=== PATIENT | male | born 1970 | race Hispanic/Latino ===

== ENCOUNTER 2024-03-16 10:00 | Inpatient (IN) | payer MEDICAID, SELFPAY ==
[2024-03-16] MEDS ORDERED: Ondansetron PF 4 MG/2 ML Vial ONE (10:31)
[2024-03-16] MEDS ORDERED: Morphine 4 MG/ML VIAL ONE ×2 (10:31→13:05)
[2024-03-16 11:10] LABS: INR-International Normal Ratio 1.2; PTT 32.3 sec (22.9-36.1); Prothrombin Time 15.5 sec (12.0-14.7)
[2024-03-16 11:36] LABS: Band 40 % (5-11); Large Platelets 2.7 % (0-5); Monocytes 2 % (0-10); Neutrophil 58 % (42-75); Platelet Adequacy Comment Platelets Decreased; RBC Morphology Within Normal Limits; Reactive Lymphocytes 1 % (0-10)
[2024-03-16 11:44] LABS: Hematocrit 44.6 % (42.0-52.0); Hemoglobin 16.2 g/dL (14.0-18.0); Mean Corpuscular HGB CONC 36.3 g/dL (32.0-36.0); Mean Corpuscular Hemoglobin 34.5 pg (27.0-31.0); Mean Corpuscular Volume 95.1 fL (78.0-98.0); Mean Platelet Volume 12.2 fL (7.4-10.4); Platelet Count 92 10x3/uL (130-400); RBC Distribution Width 12.1 % (11.5-14.5); Red Blood Cell (RBC) Count 4.69 mill/uL (4.70-6.10)
[2024-03-16 11:59] LABS: Troponin I 0.336 ng/mL (< 0.028)
[2024-03-16] MEDS ORDERED: Piperacillin/Tazobactam 3.375 GM VIAL ONE (12:23)
[2024-03-16] MEDS ORDERED: Aspirin Chewable 81 MG TAB ONE (12:23)
[2024-03-16] MEDS ORDERED: Sodium Chloride 0.9% 100 ML ONE (12:23)
[2024-03-16] MEDS ORDERED: Lactated Ringer's 1,000 ML IV SCH (13:15)
[2024-03-16 14:25] LABS: ALT (SGPT) 78 U/L (8-55); AST (SGOT) 128 U/L (5-34); Albumin 1.7 g/dL (3.5-5.0); Alkaline Phosphatase 122 U/L (40-110); Anion Gap 22 mmol/L (10-20); BUN (Urea Nitrogen) 35 mg/dL (8.4-25.7); Bilirubin, Total 4.8 mg/dL (0.2-1.2); Calc. Creatinine Clearance 0 mL/min (70-130); Calcium 4.7 mg/dL (7.8-10.44); Carbon Dioxide 11 mmol/L (22-29); Chloride 96 mmol/L (98-107); Estimated GFR 15; Globulin 3.7 g/dL (2.4-3.5); Glucose 272 mg/dL (70-105); Lipase 1517 U/L (8-78); Magnesium 1.2 mg/dL (1.6-2.6); Potassium 4.7 mmol/L (3.5-5.1); Protein, Total 5.4 g/dL (6.0-8.3); Sodium 124 mmol/L (136-145)
[2024-03-16 14:33] LABS: Critical Call Chem Troponin I TRENDING DOWN; Troponin I 0.228 ng/mL (< 0.028)
[2024-03-16] MEDS ORDERED: Ondansetron ODT 4 MG TAB PO PRN (14:34)
[2024-03-16] MEDS ORDERED: Ondansetron PF 4 MG/2 ML Vial IVP PRN (14:34)
[2024-03-16] MEDS ORDERED: Calcium Carbonate 500 MG ChewTAB PO PRN (14:34)
[2024-03-16] MEDS ORDERED: Lorazepam 2 MG/ML VIAL IM PRN (14:41)
[2024-03-16] MEDS ORDERED: Electrolyte Replacement Protocol 1 EACH FS SCH (14:45)
[2024-03-16] MEDS ORDERED: CALCIUM GLUC 1 GM/NS 50 ML IV Bag ONE (14:48)
[2024-03-16] MEDS ORDERED: Magnesium 2 GM/50 ML BAG (IN WATER) ONE (14:48)
[2024-03-16] MEDS ORDERED: Nitroglycerin 0.4 MG TAB (25 Tab Bottle) SL PRN (14:57)
[2024-03-16] MEDS: Multivitamins, Adult 10 ML, Thiamine HCl 100 MG, Folic Acid 1 MG in Dextrose 5 %-0.45 %... IV SCH (15:37)
[2024-03-16] MEDS: Sodium Bicarb 50 MEQ/50 ML Abboject 8.4% SYRINGE IVP SCH (16:33)
[2024-03-16] MEDS: CALCIUM GLUC 1 GM/NS 50 ML 1 GM in Premix 1 BAG IVPB SCH (16:33)
[2024-03-16] MEDS: Magnesium 2 GM/50 ML(in water) 2 GM in Premix 1 BAG IVPB SCH (16:33)
[2024-03-16] MEDS: Morphine 4 MG/ML VIAL SLOW IVP PRN (16:39)
[2024-03-16] MEDS: Sodium Bicarbonate 150 MEQ in Dextrose 5% in Water 1,000 ML IV SCH (16:43)
[2024-03-16] MEDS: Piperacillin/Tazobactam 3.375 GM in Sodium Chloride 0.9% 100 ML IVPB SCH (17:48)
[2024-03-16] MEDS: Albumin 25% 25 GM (100 mL) BOT IVPB SCH (17:48)
[2024-03-16 19:17] LABS: Lactic Acid 3.9 mmol/L (0.5-2.2)
[2024-03-16 19:36] LABS: Base Excess -15.3 mEq/L (-2.0 to +3.0); Chloride (VBG) 95 mmol/L (98-106); Hematocrit-VBG 40 % (42.0-52.0); Hemoglobin (Hb) 13.7 g/dL (13.1-17.2); Potassium (VBG) 4.54 mmol/L (3.70-5.30); Sodium 127 mmol/L (133-146)
[2024-03-16 19:40] LABS: Actual Bicarbonate (HCO3v) 13.4 mEq/L (22-28); pH (venous) 7.124 (7.32-7.43)
[2024-03-16] MEDS: Sodium Bicarb 50 MEQ/50 ML Abboject 8.4% SYRINGE ONE (20:12)
[2024-03-16] MEDS ORDERED: Glucagon 1 MG/ML KIT IM PRN (20:13)
[2024-03-16] MEDS ORDERED: Dextrose 5% in Water 1,000 ML IV PRN (20:13)
[2024-03-16] MEDS: Sodium Bicarb 50 mEq/50 ML VIAL IVP SCH (20:23)
[2024-03-16] MEDS: Pantoprazole 40 MG VIAL IVP SCH (20:24)
[2024-03-16] MEDS: Famotidine/PF 20 mg/2ml Vial SLOW IVP SCH (20:24)
[2024-03-16 23:37] LABS: Actual Bicarbonate (HCO3v) 15.4 mEq/L (22-28); Base Excess -8.4 mEq/L (-2.0 to +3.0); Chloride (VBG) 95 mmol/L (98-106); Hematocrit-VBG 35 % (42.0-52.0); Hemoglobin (Hb) 11.9 g/dL (13.1-17.2); Sodium 128 mmol/L (133-146); pH (venous) 7.371 (7.32-7.43)
[2024-03-17] MEDS: Lorazepam 1 MG TAB PO PRN (00:16)
[2024-03-17 00:19] LABS: Anion Gap 26 mmol/L (10-20); BUN (Urea Nitrogen) 40 mg/dL (8.4-25.7); Calc. Creatinine Clearance 18 mL/min (70-130); Calcium 4.6 mg/dL (7.8-10.44); Carbon Dioxide 13 mmol/L (22-29); Chloride 94 mmol/L (98-107); Estimated GFR 13; Glucose 368 mg/dL (70-105); Potassium 4.6 mmol/L (3.5-5.1); Sodium 128 mmol/L (136-145)
[2024-03-17] MEDS ORDERED: Calcium Chloride 1 GM/10 ML Abboject SYRINGE ONE (01:26)
[2024-03-17] MEDS ORDERED: Sodium Bicarb 50 MEQ/50 ML Abboject 8.4% SYRINGE ONE (01:26)
[2024-03-17] MEDS ORDERED: EPINEPHrine 1 MG/10 ML Abboject SYRINGE ONE (01:26)
[2024-03-17] MEDS ORDERED: Ventilator Sedation Protocol 1 EACH FS SCH (01:37)
[2024-03-17] MEDS ORDERED: Fentanyl BOLUS 250 ML IVPB PRN (01:45)
[2024-03-17] MEDS ORDERED: DISCONTINUE PREVIOUS NARCOTIC PAIN MEDICATIONS AND BENZODIAZEPINES FS SCH (01:45)
[2024-03-17] MEDS ORDERED: Propofol BOLUS 1,000 MG/100 ML VIAL IV PRN (01:45)
[2024-03-17] MEDS ORDERED: Morphine 2 MG/ML VIAL SLOW IVP PRN (01:45)
[2024-03-17] MEDS: Propofol 1,000 MG/100 ML VIAL IV PRN (01:45)
[2024-03-17 02:27] LABS: INR-International Normal Ratio 1.3; Prothrombin Time 16.6 sec (12.0-14.7)
[2024-03-17 02:28] LABS: PTT 38.3 sec (22.9-36.1)
[2024-03-17 02:38] LABS: Actual Bicarbonate (HCO3a) 17.8 mEq/L (22-28); Base Excess (BEa) -11.3 mEq/L (-2.0 to +3.0); CO2 Tension 54.1 mmHg (35.0-45.0); Carboxyhemoglobin (COHb) 1.2 gm% (0.0-3.0); Hematocrit-ABG 37 % (42.0-52.0); Hemoglobin (Hb) 12.6 g/dL (14.0-18.0); O2 Tension (PaO2), arterial 88.4 mmHg (80.0-100.0); Potassium - ABG Lab 3.62 mmol/L (3.70-5.30)
[2024-03-17 02:38] LABS: Hematocrit 31.7 % (42.0-52.0); Mean Corpuscular HGB CONC 34.7 g/dL (32.0-36.0); Mean Corpuscular Hemoglobin 35.1 pg (27.0-31.0); Mean Corpuscular Volume 101.3 fL (78.0-98.0); Platelet Count 58 10x3/uL (130-400); RBC Distribution Width 12.4 % (11.5-14.5); Red Blood Cell (RBC) Count 3.13 mill/uL (4.70-6.10)
[2024-03-17 02:40] LABS: Calcium, Ionized (arterial) 0.76 mmol/L (1.12-1.30); Puncture Site LBA; pH, Arterial 7.136 (7.35-7.45)
[2024-03-17 02:41] LABS: ALV-art Gradient 556.975 mmHg (0-20)
[2024-03-17 02:46] LABS: Band 11 % (5-11); Macrocytosis MODERATE=16-30 cells HPF (0-5); Metamyelocyte 11 % (0-0); Monocytes 8 % (0-10); Neutrophil 71 % (42-75); Nucleated RBC (Manual Ct) 3 % (0); Platelet Adequacy Comment Platelets Decreased; Polychromasia SLIGHT = 2-3 cells HPF (0-2)
[2024-03-17 02:47] LABS: Lactic Acid 9.2 mmol/L (0.5-2.2)
[2024-03-17 02:53] LABS: A1c 132.459 g/dL; Hb (HGBA1c) 3101.8553 umol/L; Hemoglobin A1c 6.1 % (4.0-6.0); Troponin I 0.177 ng/mL (< 0.028)
[2024-03-17] MEDS: Fentanyl CADD 100 ML IV SCH (02:54)
[2024-03-17] MEDS: Lorazepam 2 MG/ML VIAL SLOW IVP PRN ×2 (02:55→12:32)
[2024-03-17] MEDS: NOREPINEPHRINE 8 MG/250 ML-D5W 250 ML ONE (02:55)
[2024-03-17 03:36] LABS: Lipase 942 U/L (8-78)
[2024-03-17 03:39] LABS: Albumin 2.1 g/dL (3.5-5.0); Chloride 92 mmol/L (98-107); Potassium 4.3 mmol/L (3.5-5.1); Sodium 129 mmol/L (136-145)
[2024-03-17 03:40] LABS: ALT (SGPT) 69 U/L (8-55); AST (SGOT) 125 U/L (5-34); Alkaline Phosphatase 88 U/L (40-110); Anion Gap 28 mmol/L (10-20); BUN (Urea Nitrogen) 39 mg/dL (8.4-25.7); Bilirubin, Total 4.2 mg/dL (0.2-1.2); Calc. Creatinine Clearance 17 mL/min (70-130); Carbon Dioxide 13 mmol/L (22-29); Estimated GFR 12; Glucose 351 mg/dL (70-105); Magnesium 1.6 mg/dL (1.6-2.6); Protein, Total 5.1 g/dL (6.0-8.3)
[2024-03-17 03:41] LABS: Calcium 5.1 mg/dL (7.8-10.44); Phosphorus 6.6 mg/dL (2.3-4.7)
[2024-03-17] MEDS: Etomidate 40 MG (20 mL) VIAL ONE (03:43)
[2024-03-17] MEDS: Rocuronium Bromide 50 MG/5 ML VIAL ONE (03:45)
[2024-03-17] MEDS: Propofol 1,000 MG/100 ML VIAL IV ONE (03:45)
[2024-03-17] MEDS: CALCIUM GLUC 1 GM/NS 50 ML 1 GM in Premix 1 BAG IVPB SCH ×2 (04:01→05:46)
[2024-03-17 04:05] LABS: Actual Bicarbonate (HCO3a) 20.1 mEq/L (22-28); Base Excess (BEa) -5.7 mEq/L (-2.0 to +3.0); CO2 Tension 40.8 mmHg (35.0-45.0); Carboxyhemoglobin (COHb) 0.9 gm% (0.0-3.0); Hematocrit-ABG 36 % (42.0-52.0); Hemoglobin (Hb) 12.3 g/dL (14.0-18.0); Potassium - ABG Lab 3.72 mmol/L (3.70-5.30); pH, Arterial 7.311 (7.35-7.45)
[2024-03-17 04:26] LABS: Calcium, Ionized (arterial) 0.68 mmol/L (1.12-1.30); O2 Tension (PaO2), arterial 55.9 mmHg (80.0-100.0)
[2024-03-17 04:27] LABS: Puncture Site LBA
[2024-03-17] MEDS: Vasopressin 20 UNITS in Sodium Chloride 0.9% 50 ML IV SCH (04:36)
[2024-03-17 04:43] LABS: Actual Bicarbonate (HCO3a) 19.3 mEq/L (22-28); Base Excess (BEa) -6.2 mEq/L (-2.0 to +3.0); CO2 Tension 38.3 mmHg (35.0-45.0); Carboxyhemoglobin (COHb) 0.9 gm% (0.0-3.0); Hematocrit-ABG 36 % (42.0-52.0); Hemoglobin (Hb) 12.3 g/dL (14.0-18.0); O2 Tension (PaO2), arterial 86.2 mmHg (80.0-100.0); Potassium - ABG Lab 3.75 mmol/L (3.70-5.30); pH, Arterial 7.321 (7.35-7.45)
[2024-03-17 04:44] LABS: Calcium, Ionized (arterial) 0.66 mmol/L (1.12-1.30)
[2024-03-17 04:46] LABS: ALV-art Gradient 578.925 mmHg (0-20); Puncture Site RRA
[2024-03-17] MEDS: Hydrocortisone Sod Succ/PF 100 mg/2 ml Vial IVP SCH (04:49)
[2024-03-17] MEDS: Albumin 25% 25 GM (100 mL) BOT IVPB SCH (04:50)
[2024-03-17] MEDS: Lactated Ringer's 1,000 ML IV SCH (05:32)
[2024-03-17 07:15] LABS: Calcium, Ionized (venous) 0.72 mmol/L (1.16-1.32); Potassium (VBG) 6.39 mmol/L (3.70-5.30)
[2024-03-17 07:42] LABS: Bilirubin 1+ (Negative); Blood, Urine 3+ (Negative); Clarity Extra Turbid (Clear); Glucose, Urine (Dipstick) 500 mg/dL (Negative); Ketone, Urine Negative (Negative); Leukocyte Negative Leu/uL (Negative); Nitrite Negative (Negative); Protein, Urine (Dipstick) 100 mg/dL (Neg-Trace); RBC/HPF 21-50 HPF (0-3); Specific Gravity, Urine 1.026 (1.002-1.036); Squamous Epithelial 0-3 HPF (0-3); Urobilinogen Normal mg/dL (Less than 2); pH, Urine 5.5 (5.0-9.0)
[2024-03-17] MEDS: HumaLOG 300 UNITS/3 ML VIAL SC PRN (07:43)
[2024-03-17 07:57] LABS: Bacteria/HPF 2+ HPF (None Seen)
[2024-03-17] MEDS: NOREPINEPHRINE 8 MG/250 ML-D5W 250 ML IVPB SCH (08:20)
[2024-03-17] MEDS: Pantoprazole 40 MG VIAL IVP SCH (08:23)
[2024-03-17] MEDS: Thiamine HCl 200 MG/2 ML VIAL SLOW IVP SCH (08:23)
[2024-03-17] MEDS: Multivit, Therapeutic 1 TAB PO SCH (08:49)
[2024-03-17] MEDS: Aspirin Chewable 81 MG TAB PO SCH (08:49)
[2024-03-17] MEDS: Folic Acid 1 MG TAB PO SCH (08:49)
[2024-03-17] MEDS ORDERED: Aspirin Chewable 81 MG TAB PO SCH (09:00)
[2024-03-17] MEDS: Calcium Chloride 13.6 MEQ in Sodium Chloride 0.9% 100 ML IVPB SCH ×2 (09:23→15:02)
[2024-03-17] MEDS: Insulin Reg, Human 100 UNITS in Sodium Chloride 0.9% 100 ML IVPB SCH (09:23)
[2024-03-17 13:35] LABS: ALT (SGPT) 45 U/L (8-55); AST (SGOT) 88 U/L (5-34); Albumin 2.5 g/dL (3.5-5.0); Alkaline Phosphatase 56 U/L (40-110); Anion Gap 23 mmol/L (10-20); BUN (Urea Nitrogen) 41 mg/dL (8.4-25.7); Bilirubin, Total 5.1 mg/dL (0.2-1.2); Calc. Creatinine Clearance 19 mL/min (70-130); Calcium 5.4 mg/dL (7.8-10.44); Carbon Dioxide 22 mmol/L (22-29); Chloride 88 mmol/L (98-107); Estimated GFR 13; Globulin 2.8 g/dL (2.4-3.5); Glucose 175 mg/dL (70-105); Potassium 2.9 mmol/L (3.5-5.1); Protein, Total 5.3 g/dL (6.0-8.3); Sodium 130 mmol/L (136-145)
[2024-03-17] MEDS: D5 LR w/20 mEq KCL 1,000 ML IV SCH (14:14)
[2024-03-17] MEDS: Lorazepam 2 MG/ML VIAL SLOW IVP SCH (14:14)
[2024-03-17] MEDS: Potassium Chloride 40 MEQ in Premix 1 BAG IVPB SCH (14:20)
[2024-03-17] MEDS ORDERED: Lorazepam 1 MG TAB PO PRN (14:41)
[2024-03-17 17:03] LABS: Cholesterol 115 mg/dl (< 200 Desired); HDL Cholesterol Less than 5 mg/dL (>60 Neg Risk); Triglycerides 709 mg/dL (Less than 150)
[2024-03-17] MEDS: Dextrose 10% in Water 1,000 ML IV SCH (23:31)
[2024-03-18] MEDS: Dextrose 50% Abboject 50 ML SYRINGE SLOW IVP PRN (04:21)
[2024-03-18] MEDS: Dextrose 10% in Water 1,000 ML IV SCH (04:28)
[2024-03-18] MEDS: D5 LR w/20 mEq KCL 1,000 ML IV SCH (04:28)
[2024-03-18 04:37] LABS: Hematocrit 29.9 % (42.0-52.0); Mean Corpuscular HGB CONC 36.8 g/dL (32.0-36.0); Mean Corpuscular Hemoglobin 34.2 pg (27.0-31.0); Mean Corpuscular Volume 92.9 fL (78.0-98.0); Mean Platelet Volume 12.5 fL (7.4-10.4); Platelet Count 24 10x3/uL (130-400); RBC Distribution Width 11.7 % (11.5-14.5); Red Blood Cell (RBC) Count 3.22 mill/uL (4.70-6.10)
[2024-03-18 05:04] LABS: Band 21 % (5-11); Giant Platelets 2.6 % (0-5); Lymphocytes 17 % (21-51); Metamyelocyte 4 % (0-0); Monocytes 4 % (0-10); Neutrophil 50 % (42-75); Nucleated RBC (Manual Ct) 3 % (0); Platelet Adequacy Comment Significant Decrease; Polychromasia SLIGHT = 2-3 cells HPF (0-2); Vacuoles SLIGHT
[2024-03-18 05:15] LABS: ALT (SGPT) 38 U/L (8-55); AST (SGOT) 81 U/L (5-34); Albumin 2.3 g/dL (3.5-5.0); Alkaline Phosphatase 68 U/L (40-110); Anion Gap 17 mmol/L (10-20); BUN (Urea Nitrogen) 38 mg/dL (8.4-25.7); Bilirubin, Total 4.9 mg/dL (0.2-1.2); Calc. Creatinine Clearance 20 mL/min (70-130); Calcium 5.4 mg/dL (7.8-10.44); Carbon Dioxide 24 mmol/L (22-29); Chloride 96 mmol/L (98-107); Cholesterol 100 mg/dl (< 200 Desired); Estimated GFR 13; Globulin 2.8 g/dL (2.4-3.5); Glucose 47 mg/dL (70-105); HDL Cholesterol Less than 5 mg/dL (>60 Neg Risk); Lipase 146 U/L (8-78); Magnesium 1.3 mg/dL (1.6-2.6); Phosphorus 1.5 mg/dL (2.3-4.7); Potassium 2.9 mmol/L (3.5-5.1); Protein, Total 5.1 g/dL (6.0-8.3); Sodium 134 mmol/L (136-145); Triglycerides 343 mg/dL (Less than 150)
[2024-03-18] MEDS: Magnesium 2 GM/50 ML(in water) 2 GM in Premix 1 BAG IVPB SCH (06:30)
[2024-03-18] MEDS: Potassium Chloride 20 MEQ in Premix 1 BAG IVPB SCH (06:31)
[2024-03-18] MEDS: Calcium Chloride 13.6 MEQ in Sodium Chloride 0.9% 100 ML IVPB SCH ×3 (07:49→16:56)
[2024-03-18 08:22] LABS: Actual Bicarbonate (HCO3a) 20.5 mEq/L (22-28); Base Excess (BEa) -0.2 mEq/L (-2.0 to +3.0); Carboxyhemoglobin (COHb) 0.3 gm% (0.0-3.0); Hematocrit-ABG 31 % (42.0-52.0); Hemoglobin (Hb) 10.4 g/dL (14.0-18.0); O2 Tension (PaO2), arterial 86.5 mmHg (80.0-100.0); Potassium - ABG Lab 3.78 mmol/L (3.70-5.30); pH, Arterial 7.579 (7.35-7.45)
[2024-03-18 08:26] LABS: CO2 Tension 22.4 mmHg (35.0-45.0)
[2024-03-18 08:27] LABS: Calcium, Ionized (arterial) 0.72 mmol/L (1.12-1.30); Puncture Site RRA
[2024-03-18] MEDS: Potassium Phosphate 22 MMOL in Sodium Chloride 0.9% 250 ML 250 ML IVPB SCH (08:40)
[2024-03-18] MEDS: Lorazepam 2 MG/ML VIAL SLOW IVP SCH (13:42)
[2024-03-18 14:39] LABS: ALT (SGPT) 39 U/L (8-55); AST (SGOT) 82 U/L (5-34); Albumin 2.1 g/dL (3.5-5.0); Alkaline Phosphatase 82 U/L (40-110); Anion Gap 21 mmol/L (10-20); BUN (Urea Nitrogen) 38 mg/dL (8.4-25.7); Bilirubin, Total 5.5 mg/dL (0.2-1.2); Calc. Creatinine Clearance 22 mL/min (70-130); Calcium 5.7 mg/dL (7.8-10.44); Carbon Dioxide 22 mmol/L (22-29); Chloride 96 mmol/L (98-107); Estimated GFR 15; Glucose 253 mg/dL (70-105); Magnesium 1.7 mg/dL (1.6-2.6); Phosphorus 3.6 mg/dL (2.3-4.7); Potassium 4.5 mmol/L (3.5-5.1); Protein, Total 5.1 g/dL (6.0-8.3); Sodium 134 mmol/L (136-145)
[2024-03-18] MEDS ORDERED: Lorazepam 1 MG TAB PO PRN (14:41)
[2024-03-19 00:58] LABS: Calcium 6.1 mg/dL (7.8-10.44); Critical Call Chemistry ICU.TMC@0055
[2024-03-19] MEDS: CALCIUM GLUC 1 GM/NS 50 ML 1 GM in Premix 1 BAG IVPB SCH ×2 (01:23→06:22)
[2024-03-19 04:29] LABS: Hematocrit 28.6 % (42.0-52.0); Hemoglobin 10.3 g/dL (14.0-18.0); Mean Corpuscular Hemoglobin 34.9 pg (27.0-31.0); Mean Corpuscular Volume 96.9 fL (78.0-98.0); Mean Platelet Volume 13.4 fL (7.4-10.4); Platelet Count 36 10x3/uL (130-400); RBC Distribution Width 12.8 % (11.5-14.5); Red Blood Cell (RBC) Count 2.95 mill/uL (4.70-6.10)
[2024-03-19 04:31] LABS: ALT (SGPT) 41 U/L (8-55); AST (SGOT) 66 U/L (5-34); Albumin 1.9 g/dL (3.5-5.0); Alkaline Phosphatase 101 U/L (40-110); Anion Gap 14 mmol/L (10-20); BUN (Urea Nitrogen) 36 mg/dL (8.4-25.7); Calc. Creatinine Clearance 27 mL/min (70-130); Calcium 5.8 mg/dL (7.8-10.44); Carbon Dioxide 22 mmol/L (22-29); Chloride 102 mmol/L (98-107); Cholesterol 90 mg/dl (< 200 Desired); Estimated GFR 17; Globulin 3.1 g/dL (2.4-3.5); Glucose 185 mg/dL (70-105); HDL Cholesterol Less than 5 mg/dL (>60 Neg Risk); Lipase 76 U/L (8-78); Magnesium 1.5 mg/dL (1.6-2.6); Potassium 4.1 mmol/L (3.5-5.1); Sodium 134 mmol/L (136-145); Triglycerides 151 mg/dL (Less than 150)
[2024-03-19] MEDS: Magnesium 2 GM/50 ML(in water) 2 GM in Premix 1 BAG IVPB SCH (05:01)
[2024-03-19 05:17] LABS: Anisocytosis MARKED = >30 cells HPF (0-5); Band 29 % (5-11); Eosinophils 2 % (0-10); Large Platelets 1.9 % (0-5); Lymphocytes 7 % (21-51); Macrocytosis MARKED = >30 cells HPF (0-5); Metamyelocyte 6 % (0-0); Monocytes 2 % (0-10); Neutrophil 55 % (42-75); Nucleated RBC (Manual Ct) 4 % (0); Platelet Adequacy Comment Significant Decrease; Polychromasia SLIGHT = 2-3 cells HPF (0-2); Smudge Cells 4.7 %
[2024-03-19 07:48] LABS: Actual Bicarbonate (HCO3a) 23.1 mEq/L (22-28); Base Excess (BEa) -1.5 mEq/L (-2.0 to +3.0); CO2 Tension 38.9 mmHg (35.0-45.0); Carboxyhemoglobin (COHb) 0.9 gm% (0.0-3.0); Hematocrit-ABG 37 % (42.0-52.0); Hemoglobin (Hb) 12.6 g/dL (14.0-18.0); O2 Tension (PaO2), arterial 79.7 mmHg (80.0-100.0); Potassium - ABG Lab 4.41 mmol/L (3.70-5.30); pH, Arterial 7.392 (7.35-7.45)
[2024-03-19 07:50] LABS: ALV-art Gradient 156.875 mmHg (0-20); Puncture Site RBA
[2024-03-19] MEDS: Calcium Chloride 13.6 MEQ in Sodium Chloride 0.9% 100 ML IVPB SCH (10:42)
[2024-03-19] MEDS: Albumin 25% 25 GM (100 mL) BOT IVPB SCH (10:54)
[2024-03-19] MEDS: Piperacillin/Tazobactam 3.375 GM in Sodium Chloride 0.9% 100 ML IVPB SCH (12:38)
[2024-03-19 12:52] LABS: Actual Bicarbonate (HCO3v) 25.2 mEq/L (22-28); Calcium, Ionized (venous) 0.93 mmol/L (1.16-1.32); Chloride (VBG) 101 mmol/L (98-106); Hematocrit-VBG 31 % (42.0-52.0); Hemoglobin (Hb) 10.4 g/dL (13.1-17.2); Potassium (VBG) 4.18 mmol/L (3.70-5.30); Sodium 134 mmol/L (133-146); pH (venous) 7.437 (7.32-7.43)
[2024-03-19 13:33] LABS: Anion Gap 15 mmol/L (10-20); BUN (Urea Nitrogen) 34 mg/dL (8.4-25.7); Calc. Creatinine Clearance 30 mL/min (70-130); Calcium 7.1 mg/dL (7.8-10.44); Carbon Dioxide 22 mmol/L (22-29); Chloride 102 mmol/L (98-107); Estimated GFR 19; Glucose 197 mg/dL (70-105); Potassium 4.2 mmol/L (3.5-5.1); Sodium 135 mmol/L (136-145)
[2024-03-19] MEDS ORDERED: Lorazepam 0.5 MG TAB PO PRN (14:41)
[2024-03-19] MEDS: Lorazepam 2 MG/ML VIAL SLOW IVP SCH (17:35)
[2024-03-20 03:51] LABS: Hematocrit 26.3 % (42.0-52.0); Hemoglobin 9.1 g/dL (14.0-18.0); Mean Corpuscular HGB CONC 34.6 g/dL (32.0-36.0); Mean Corpuscular Hemoglobin 34.7 pg (27.0-31.0); Mean Corpuscular Volume 100.4 fL (78.0-98.0); Mean Platelet Volume 13.8 fL (7.4-10.4); Platelet Count 32 10x3/uL (130-400); RBC Distribution Width 13.8 % (11.5-14.5); Red Blood Cell (RBC) Count 2.62 mill/uL (4.70-6.10)
[2024-03-20 03:54] LABS: Phosphorus 3.1 mg/dL (2.3-4.7)
[2024-03-20 04:06] LABS: ALT (SGPT) 27 U/L (8-55); AST (SGOT) 40 U/L (5-34); Albumin 2.5 g/dL (3.5-5.0); Alkaline Phosphatase 98 U/L (40-110); Anion Gap 17 mmol/L (10-20); BUN (Urea Nitrogen) 30 mg/dL (8.4-25.7); Calc. Creatinine Clearance 39 mL/min (70-130); Calcium 6.9 mg/dL (7.8-10.44); Carbon Dioxide 21 mmol/L (22-29); Cardiac Risk TEST NOT PERFORMED (Less than 4.5); Chloride 105 mmol/L (98-107); Cholesterol 68 mg/dl (< 200 Desired); Estimated GFR 25; Globulin 2.8 g/dL (2.4-3.5); Glucose 221 mg/dL (70-105); HDL Cholesterol Less than 5 mg/dL (>60 Neg Risk); Lipase 34 U/L (8-78); Magnesium 1.9 mg/dL (1.6-2.6); Potassium 4.4 mmol/L (3.5-5.1); Protein, Total 5.3 g/dL (6.0-8.3); Sodium 139 mmol/L (136-145); Triglycerides 114 mg/dL (Less than 150)
[2024-03-20 04:58] LABS: Anisocytosis MARKED = >30 cells HPF (0-5); Band 33 % (5-11); Eosinophils 3 % (0-10); Hypochromia SLIGHT = 6-15 cells HPF (0-5); Large Platelets 4.7 % (0-5); Lymphocytes 11 % (21-51); Macrocytosis SLIGHT = 6-15 cells HPF (0-5); Metamyelocyte 3 % (0-0); Monocytes 15 % (0-10); Neutrophil 32 % (42-75); Nucleated RBC (Manual Ct) 1 % (0); Platelet Adequacy Comment Platelets Decreased; Poikilocytosis SLIGHT = 6-15 cells HPF (0-5); Polychromasia SLIGHT = 2-3 cells HPF (0-2); Reactive Lymphocytes 2 % (0-10); Toxic Granulation SLIGHT
[2024-03-20 07:10] LABS: Base Excess (BEa) -0.3 mEq/L (-2.0 to +3.0); CO2 Tension 37.7 mmHg (35.0-45.0); Calcium, Ionized (arterial) 0.93 mmol/L (1.12-1.30); Carboxyhemoglobin (COHb) 1.5 gm% (0.0-3.0); Hematocrit-ABG 28 % (42.0-52.0); Hemoglobin (Hb) 9.5 g/dL (14.0-18.0); O2 Tension (PaO2), arterial 90.8 mmHg (80.0-100.0); Potassium - ABG Lab 4.22 mmol/L (3.70-5.30); pH, Arterial 7.422 (7.35-7.45)
[2024-03-20 07:13] LABS: ALV-art Gradient 147.275 mmHg (0-20); Puncture Site RRA
[2024-03-20] MEDS: Thiamine 100 MG TAB PO SCH (08:28)
[2024-03-20] MEDS: Furosemide 40 MG (4 mL) VIAL SLOW IVP SCH (10:06)
[2024-03-20] MEDS: Calcium Chloride 13.6 MEQ in Sodium Chloride 0.9% 100 ML IVPB SCH (10:56)
[2024-03-20] MEDS: Acetaminophen 325 MG TAB PO PRN (20:25)
[2024-03-21 04:17] LABS: Mean Corpuscular HGB CONC 33.3 g/dL (32.0-36.0); Mean Corpuscular Hemoglobin 35.3 pg (27.0-31.0); Mean Corpuscular Volume 105.9 fL (78.0-98.0); Mean Platelet Volume 14.2 fL (7.4-10.4); Platelet Count 35 10x3/uL (130-400); RBC Distribution Width 14.6 % (11.5-14.5); Red Blood Cell (RBC) Count 2.55 mill/uL (4.70-6.10)
[2024-03-21 04:28] LABS: Phosphorus 3.4 mg/dL (2.3-4.7)
[2024-03-21 04:45] LABS: Anisocytosis SLIGHT = 6-15 cells HPF (0-5); Band 15 % (5-11); Eosinophils 3 % (0-10); Large Platelets 4.8 % (0-5); Lymphocytes 11 % (21-51); Macrocytosis MODERATE=16-30 cells HPF (0-5); Metamyelocyte 1 % (0-0); Monocytes 5 % (0-10); Neutrophil 65 % (42-75); Platelet Adequacy Comment Significant Decrease; Poikilocytosis MODERATE=16-30 cells HPF (0-5); Polychromasia MODERATE = 3-4 cells HPF (0-2); Toxic Granulation SLIGHT
[2024-03-21 05:24] LABS: ALT (SGPT) 23 U/L (8-55); AST (SGOT) 37 U/L (5-34); Albumin 2.2 g/dL (3.5-5.0); Alkaline Phosphatase 106 U/L (40-110); Anion Gap 15 mmol/L (10-20); BUN (Urea Nitrogen) 40 mg/dL (8.4-25.7); Bilirubin, Total 6.1 mg/dL (0.2-1.2); Calc. Creatinine Clearance 36 mL/min (70-130); Calcium 7.3 mg/dL (7.8-10.44); Carbon Dioxide 22 mmol/L (22-29); Cardiac Risk TEST NOT PERFORMED (Less than 4.5); Chloride 108 mmol/L (98-107); Cholesterol 69 mg/dl (< 200 Desired); Estimated GFR 23; Glucose 181 mg/dL (70-105); HDL Cholesterol Less than 5 mg/dL (>60 Neg Risk); Magnesium 1.8 mg/dL (1.6-2.6); Potassium 4.2 mmol/L (3.5-5.1); Protein, Total 5.2 g/dL (6.0-8.3); Sodium 141 mmol/L (136-145); Triglycerides 151 mg/dL (Less than 150)
[2024-03-21 07:41] LABS: Actual Bicarbonate (HCO3a) 20.8 mEq/L (22-28); Base Excess (BEa) -4.2 mEq/L (-2.0 to +3.0); CO2 Tension 37.5 mmHg (35.0-45.0); Calcium, Ionized (arterial) 1.02 mmol/L (1.12-1.30); Carboxyhemoglobin (COHb) 2.3 gm% (0.0-3.0); Hematocrit-ABG 28 % (42.0-52.0); Hemoglobin (Hb) 9.5 g/dL (14.0-18.0); O2 Tension (PaO2), arterial 78.8 mmHg (80.0-100.0); Potassium - ABG Lab 4.11 mmol/L (3.70-5.30); pH, Arterial 7.362 (7.35-7.45)
[2024-03-21 07:52] LABS: ALV-art Gradient 159.525 mmHg (0-20); Puncture Site RRA
[2024-03-22 08:35] LABS: ALT (SGPT) 19 U/L (8-55); AST (SGOT) 26 U/L (5-34); Albumin 1.9 g/dL (3.5-5.0); Alkaline Phosphatase 92 U/L (40-110); Anion Gap 18 mmol/L (10-20); BUN (Urea Nitrogen) 61 mg/dL (8.4-25.7); Bilirubin, Total 3.9 mg/dL (0.2-1.2); Calc. Creatinine Clearance 34 mL/min (70-130); Calcium 7.8 mg/dL (7.8-10.44); Carbon Dioxide 20 mmol/L (22-29); Chloride 108 mmol/L (98-107); Estimated GFR 23; Globulin 3.7 g/dL (2.4-3.5); Glucose 286 mg/dL (70-105); Potassium 4.1 mmol/L (3.5-5.1); Protein, Total 5.6 g/dL (6.0-8.3); Sodium 142 mmol/L (136-145)
[2024-03-22] MEDS: Metolazone 5 MG TAB PO SCH (09:26)
[2024-03-22 20:07] LABS: Actual Bicarbonate (HCO3v) 25.1 mEq/L (22-28); Base Excess 0.6 mEq/L (-2.0 to +3.0); Calcium, Ionized (venous) 1.06 mmol/L (1.16-1.32); Chloride (VBG) 105 mmol/L (98-106); Hematocrit-VBG 34 % (42.0-52.0); Hemoglobin (Hb) 11.4 g/dL (13.1-17.2); Potassium (VBG) 4.09 mmol/L (3.70-5.30); Sodium 143 mmol/L (133-146); pH (venous) 7.419 (7.32-7.43)
[2024-03-22 20:13] LABS: Anion Gap 21 mmol/L (10-20); BUN (Urea Nitrogen) 69 mg/dL (8.4-25.7); Calc. Creatinine Clearance 35 mL/min (70-130); Calcium 8.5 mg/dL (7.8-10.44); Carbon Dioxide 22 mmol/L (22-29); Chloride 105 mmol/L (98-107); Estimated GFR 24; Glucose 344 mg/dL (70-105); Potassium 4.1 mmol/L (3.5-5.1); Sodium 144 mmol/L (136-145)
[2024-03-22] MEDS: Acetaminophen 650 MG Suppository PR PRN (20:36)
[2024-03-22] MEDS: HumaLOG 300 UNITS/3 ML VIAL SC PRN (20:37)
[2024-03-22] MEDS: Sodium Chloride 0.9% 500 ML IV SCH (20:40)
[2024-03-22] MEDS: Morphine 4 MG/ML VIAL SLOW IVP PRN (20:54)
[2024-03-22] MEDS ORDERED: Propofol 1,000 MG/100 ML VIAL IV PRN (22:21)
[2024-03-22] MEDS: Propofol 1,000 MG/100 ML VIAL IV PRN (22:41)
[2024-03-22] MEDS: Propofol 1,000 MG/100 ML VIAL IV ONE (22:43)
[2024-03-22] MEDS ORDERED: Propofol BOLUS 1,000 MG/100 ML VIAL IV PRN (22:45)
[2024-03-23] MEDS: HumaLOG 300 UNITS/3 ML VIAL SC PRN (00:54)
[2024-03-23] MEDS: Albumin 25% 25 GM (100 mL) BOT IVPB SCH (01:37)
[2024-03-23 04:46] LABS: Hematocrit 27.6 % (42.0-52.0); Hemoglobin 9.1 g/dL (14.0-18.0); Mean Platelet Volume 13.8 fL (7.4-10.4); Platelet Count 87 10x3/uL (130-400); RBC Distribution Width 14.4 % (11.5-14.5); Red Blood Cell (RBC) Count 2.68 mill/uL (4.70-6.10)
[2024-03-23 04:58] LABS: ALT (SGPT) 15 U/L (8-55); AST (SGOT) 19 U/L (5-34); Albumin 2.2 g/dL (3.5-5.0); Alkaline Phosphatase 82 U/L (40-110); Anion Gap 18 mmol/L (10-20); BUN (Urea Nitrogen) 79 mg/dL (8.4-25.7); Bilirubin, Total 3.7 mg/dL (0.2-1.2); Calc. Creatinine Clearance 34 mL/min (70-130); Calcium 8.4 mg/dL (7.8-10.44); Carbon Dioxide 23 mmol/L (22-29); Chloride 107 mmol/L (98-107); Estimated GFR 23; Globulin 3.5 g/dL (2.4-3.5); Glucose 268 mg/dL (70-105); Potassium 3.7 mmol/L (3.5-5.1); Protein, Total 5.7 g/dL (6.0-8.3); Sodium 144 mmol/L (136-145)
[2024-03-23 05:37] LABS: Anisocytosis SLIGHT = 6-15 cells HPF (0-5); Band 21 % (5-11); Dohle Bodies SLIGHT; Large Platelets 5.8 % (0-5); Lymphocytes 8 % (21-51); Macrocytosis MODERATE=16-30 cells HPF (0-5); Monocytes 1 % (0-10); Neutrophil 70 % (42-75); Nucleated RBC (Manual Ct) 1 % (0); Platelet Adequacy Comment Platelets Decreased; Polychromasia SLIGHT = 2-3 cells HPF (0-2); Smudge Cells 1.9 %; Target Cells SLIGHT = 2-5 cells HPF (0-1)
[2024-03-23 07:16] LABS: Actual Bicarbonate (HCO3a) 25.9 mEq/L (22-28); Base Excess (BEa) 2.1 mEq/L (-2.0 to +3.0); CO2 Tension 37.4 mmHg (35.0-45.0); Carboxyhemoglobin (COHb) 1.1 gm% (0.0-3.0); Hematocrit-ABG 33 % (42.0-52.0); Hemoglobin (Hb) 11.1 g/dL (14.0-18.0); Potassium - ABG Lab 3.45 mmol/L (3.70-5.30); pH, Arterial 7.459 (7.35-7.45)
[2024-03-23 07:19] LABS: O2 Tension (PaO2), arterial 52.9 mmHg (80.0-100.0)
[2024-03-23 07:20] LABS: Puncture Site RRA
[2024-03-23] MEDS: Metolazone 5 MG TAB PO SCH (08:23)
[2024-03-24 05:00] LABS: Hematocrit 27.9 % (42.0-52.0); Hemoglobin 9.2 g/dL (14.0-18.0); Mean Corpuscular Hemoglobin 33.9 pg (27.0-31.0); Platelet Count 123 10x3/uL (130-400); RBC Distribution Width 14.2 % (11.5-14.5); Red Blood Cell (RBC) Count 2.71 mill/uL (4.70-6.10)
[2024-03-24 05:17] LABS: ALT (SGPT) 11 U/L (8-55); AST (SGOT) 25 U/L (5-34); Albumin 1.9 g/dL (3.5-5.0); Alkaline Phosphatase 91 U/L (40-110); Anion Gap 18 mmol/L (10-20); BUN (Urea Nitrogen) 83 mg/dL (8.4-25.7); Bilirubin, Total 2.6 mg/dL (0.2-1.2); Calc. Creatinine Clearance 41 mL/min (70-130); Calcium 8.3 mg/dL (7.8-10.44); Carbon Dioxide 26 mmol/L (22-29); Chloride 108 mmol/L (98-107); Estimated GFR 30; Globulin 3.8 g/dL (2.4-3.5); Glucose 204 mg/dL (70-105); Protein, Total 5.7 g/dL (6.0-8.3); Sodium 149 mmol/L (136-145)
[2024-03-24] MEDS: Potassium Chloride 40 MEQ in Premix 1 BAG IVPB SCH ×2 (05:37→20:02)
[2024-03-24 05:45] LABS: Band 35 % (5-11); Eosinophils 1 % (0-10); Hypochromia SLIGHT = 6-15 cells HPF (0-5); Lymphocytes 4 % (21-51); Macrocytosis SLIGHT = 6-15 cells HPF (0-5); Monocytes 2 % (0-10); Myelocyte 1 % (0-0); Neutrophil 57 % (42-75); Platelet Adequacy Comment Platelets Decreased; Polychromasia SLIGHT = 2-3 cells HPF (0-2)
[2024-03-24] MEDS: Albumin 25% 25 GM (100 mL) BOT IVPB SCH (06:05)
[2024-03-24] MEDS: Bisacodyl 10 MG SUPP PR SCH ×2 (11:32→20:02)
[2024-03-24] MEDS: Dextrose 5%-Lactated Ringers 1,000 ML IV SCH (11:33)
[2024-03-24] MEDS: Piperacillin/Tazobactam 3.375 GM in Sodium Chloride 0.9% 100 ML IVPB SCH (11:44)
[2024-03-24 14:55] LABS: Anion Gap 17 mmol/L (10-20); BUN (Urea Nitrogen) 83 mg/dL (8.4-25.7); Calc. Creatinine Clearance 44 mL/min (70-130); Carbon Dioxide 27 mmol/L (22-29); Chloride 110 mmol/L (98-107); Critical Call Chemistry NUR.AG15@1455; Potassium 2.9 mmol/L (3.5-5.1); Sodium 151 mmol/L (136-145)
[2024-03-24 14:56] LABS: Calcium 8.4 mg/dL (7.8-10.44); Estimated GFR 33; Glucose 217 mg/dL (70-105)
[2024-03-24] MEDS ORDERED: Dextrose 5% in Water 1,000 ML IV PRN (15:15)
[2024-03-24] MEDS: Potassium Chloride 20 MEQ in Premix 1 BAG IVPB SCH (15:22)
[2024-03-24] MEDS: Dextrose 5% in Water 1,000 ML IV SCH (15:22)
[2024-03-24 17:27] LABS: Anion Gap 13 mmol/L (10-20); BUN (Urea Nitrogen) 83 mg/dL (8.4-25.7); Calc. Creatinine Clearance 46 mL/min (70-130); Carbon Dioxide 31 mmol/L (22-29); Chloride 109 mmol/L (98-107); Potassium 3.1 mmol/L (3.5-5.1); Sodium 150 mmol/L (136-145)
[2024-03-24 17:28] LABS: Calcium 8.5 mg/dL (7.8-10.44); Estimated GFR 34; Glucose 214 mg/dL (70-105)
[2024-03-24 19:04] LABS: Anion Gap 15 mmol/L (10-20); BUN (Urea Nitrogen) 81 mg/dL (8.4-25.7); Calc. Creatinine Clearance 47 mL/min (70-130); Calcium 8.7 mg/dL (7.8-10.44); Carbon Dioxide 29 mmol/L (22-29); Chloride 110 mmol/L (98-107); Estimated GFR 35; Glucose 218 mg/dL (70-105); Potassium 2.9 mmol/L (3.5-5.1); Sodium 151 mmol/L (136-145)
[2024-03-25 01:19] LABS: Anion Gap 15 mmol/L (10-20); BUN (Urea Nitrogen) 77 mg/dL (8.4-25.7); Calc. Creatinine Clearance 52 mL/min (70-130); Calcium 8.7 mg/dL (7.8-10.44); Carbon Dioxide 27 mmol/L (22-29); Chloride 108 mmol/L (98-107); Estimated GFR 40; Glucose 306 mg/dL (70-105); Sodium 147 mmol/L (136-145)
[2024-03-25] MEDS: Potassium Chloride 40 MEQ in Premix 1 BAG IVPB SCH (02:15)
[2024-03-25] MEDS: Dextrose 5% in Water 1,000 ML IV SCH ×4 (02:16→20:23)
[2024-03-25] MEDS: Hydrocortisone 1% Cream 30 GM TUBE TOP PRN (02:27)
[2024-03-25 03:37] LABS: Hematocrit 23.9 % (42.0-52.0); Hemoglobin 7.8 g/dL (14.0-18.0); Mean Corpuscular HGB CONC 32.6 g/dL (32.0-36.0); Mean Corpuscular Hemoglobin 33.8 pg (27.0-31.0); Mean Corpuscular Volume 103.5 fL (78.0-98.0); Mean Platelet Volume 12.3 fL (7.4-10.4); Platelet Count 130 10x3/uL (130-400); Red Blood Cell (RBC) Count 2.31 mill/uL (4.70-6.10)
[2024-03-25 04:03] LABS: Anisocytosis SLIGHT = 6-15 cells HPF (0-5); Band 28 % (5-11); Eosinophils 1 % (0-10); Hypochromia SLIGHT = 6-15 cells HPF (0-5); Lymphocytes 10 % (21-51); Macrocytosis SLIGHT = 6-15 cells HPF (0-5); Monocytes 2 % (0-10); Neutrophil 56 % (42-75); Platelet Adequacy Comment Platelets Normal; Polychromasia SLIGHT = 2-3 cells HPF (0-2); Reactive Lymphocytes 2 % (0-10); Stomatocytes SLIGHT = 2-5 cells HPF (0-1)
[2024-03-25 04:04] LABS: ALT (SGPT) 11 U/L (8-55); AST (SGOT) 24 U/L (5-34); Albumin 2.9 g/dL (3.5-5.0); Alkaline Phosphatase 67 U/L (40-110); Anion Gap 20 mmol/L (10-20); BUN (Urea Nitrogen) 74 mg/dL (8.4-25.7); Bilirubin, Total 2.7 mg/dL (0.2-1.2); Calc. Creatinine Clearance 53 mL/min (70-130); Calcium 8.5 mg/dL (7.8-10.44); Carbon Dioxide 26 mmol/L (22-29); Chloride 108 mmol/L (98-107); Estimated GFR 41; Globulin 3.1 g/dL (2.4-3.5); Glucose 290 mg/dL (70-105); Potassium 3.7 mmol/L (3.5-5.1); Sodium 150 mmol/L (136-145)
[2024-03-25 04:35] LABS: Hematocrit 24.9 % (42.0-52.0); Hemoglobin 8.3 g/dL (14.0-18.0); Mean Corpuscular HGB CONC 33.3 g/dL (32.0-36.0); Mean Corpuscular Hemoglobin 33.5 pg (27.0-31.0); Mean Corpuscular Volume 100.4 fL (78.0-98.0); Mean Platelet Volume 12.3 fL (7.4-10.4); Platelet Count 140 10x3/uL (130-400); RBC Distribution Width 14.1 % (11.5-14.5); Red Blood Cell (RBC) Count 2.48 mill/uL (4.70-6.10)
[2024-03-25 04:47] LABS: Anion Gap 17 mmol/L (10-20); BUN (Urea Nitrogen) 72 mg/dL (8.4-25.7); Calc. Creatinine Clearance 54 mL/min (70-130); Calcium 8.5 mg/dL (7.8-10.44); Carbon Dioxide 27 mmol/L (22-29); Chloride 109 mmol/L (98-107); Estimated GFR 42; Glucose 281 mg/dL (70-105); Potassium 3.6 mmol/L (3.5-5.1); Sodium 149 mmol/L (136-145)
[2024-03-25 05:03] LABS: Anisocytosis SLIGHT = 6-15 cells HPF (0-5); Band 25 % (5-11); Eosinophils 1 % (0-10); Hypochromia SLIGHT = 6-15 cells HPF (0-5); Large Platelets 2.9 % (0-5); Lymphocytes 6 % (21-51); Macrocytosis SLIGHT = 6-15 cells HPF (0-5); Metamyelocyte 2 % (0-0); Monocytes 3 % (0-10); Neutrophil 62 % (42-75); Platelet Adequacy Comment Platelets Normal; Polychromasia SLIGHT = 2-3 cells HPF (0-2); Reactive Lymphocytes 1 % (0-10); Stomatocytes SLIGHT = 2-5 cells HPF (0-1)
[2024-03-25 09:17] LABS: Actual Bicarbonate (HCO3a) 29.4 mEq/L (22-28); Base Excess (BEa) 6.4 mEq/L (-2.0 to +3.0); CO2 Tension 35.9 mmHg (35.0-45.0); Calcium, Ionized (arterial) 1.06 mmol/L (1.12-1.30); Carboxyhemoglobin (COHb) 0.2 gm% (0.0-3.0); Hematocrit-ABG 27 % (42.0-52.0); Hemoglobin (Hb) 9.1 g/dL (14.0-18.0); O2 Tension (PaO2), arterial 68.1 mmHg (80.0-100.0); Potassium - ABG Lab 3.38 mmol/L (3.70-5.30); Puncture Site RRA; pH, Arterial 7.531 (7.35-7.45)
[2024-03-25 09:18] LABS: ALV-art Gradient 243.525 mmHg (0-20)
[2024-03-25] MEDS: Meropenem 1 GM in Sodium Chloride 0.9% 100 ML IVPB SCH ×2 (11:42→17:06)
[2024-03-25] MEDS: Metoclopramide HCl 10 MG (2 mL) VIAL IVP SCH (11:42)
[2024-03-25 12:07] LABS: Anion Gap 16 mmol/L (10-20); BUN (Urea Nitrogen) 68 mg/dL (8.4-25.7); Calc. Creatinine Clearance 63 mL/min (70-130); Calcium 8.3 mg/dL (7.8-10.44); Carbon Dioxide 26 mmol/L (22-29); Chloride 109 mmol/L (98-107); Estimated GFR 51; Glucose 335 mg/dL (70-105); Potassium 3.1 mmol/L (3.5-5.1); Sodium 148 mmol/L (136-145)
[2024-03-25] MEDS ORDERED: fentaNYL 50 mcg/mL 1 mL Vial SLOW IVP PRN (12:07)
[2024-03-25] MEDS ORDERED: Iopamidol-370 76% 500 ML MDV (1 ML CHARGE) ONE (12:19)
[2024-03-25] MEDS: Lorazepam 2 MG/ML VIAL SLOW IVP PRN (12:22)
[2024-03-25] MEDS: fentaNYL 50 mcg/mL 1 mL Vial SLOW IVP PRN (12:22)
[2024-03-25] MEDS: Insulin NPH Human Isophane 100 UNITS/ML (10 ML VIAL) SC SCH ×2 (13:20→20:28)
[2024-03-25] MEDS: Heparin 5,000 UNITS/ML VIAL SC SCH (15:22)
[2024-03-25 16:26] LABS: Anion Gap 15 mmol/L (10-20); BUN (Urea Nitrogen) 66 mg/dL (8.4-25.7); Calc. Creatinine Clearance 69 mL/min (70-130); Calcium 8.4 mg/dL (7.8-10.44); Carbon Dioxide 27 mmol/L (22-29); Chloride 107 mmol/L (98-107); Estimated GFR 57; Glucose 333 mg/dL (70-105); Potassium 3.6 mmol/L (3.5-5.1); Sodium 145 mmol/L (136-145)
[2024-03-26 04:11] LABS: Hematocrit 25.7 % (42.0-52.0); Hemoglobin 8.3 g/dL (14.0-18.0); Mean Corpuscular HGB CONC 32.3 g/dL (32.0-36.0); Mean Corpuscular Hemoglobin 33.6 pg (27.0-31.0); Mean Platelet Volume 12.6 fL (7.4-10.4); Platelet Count 157 10x3/uL (130-400); RBC Distribution Width 13.7 % (11.5-14.5); Red Blood Cell (RBC) Count 2.47 mill/uL (4.70-6.10)
[2024-03-26 04:20] LABS: INR-International Normal Ratio 1.2; Prothrombin Time 15.5 sec (12.0-14.7)
[2024-03-26 04:21] LABS: PTT 32.9 sec (22.9-36.1)
[2024-03-26 04:24] LABS: Anion Gap 15 mmol/L (10-20); BUN (Urea Nitrogen) 63 mg/dL (8.4-25.7); Calc. Creatinine Clearance 77 mL/min (70-130); Calcium 8.3 mg/dL (7.8-10.44); Carbon Dioxide 29 mmol/L (22-29); Chloride 110 mmol/L (98-107); Estimated GFR 65; Glucose 264 mg/dL (70-105); Potassium 3.1 mmol/L (3.5-5.1); Sodium 151 mmol/L (136-145)
[2024-03-26 04:52] LABS: Band 25 % (5-11); Eosinophils 1 % (0-10); Lymphocytes 11 % (21-51); Macrocytosis SLIGHT = 6-15 cells HPF (0-5); Metamyelocyte 3 % (0-0); Monocytes 4 % (0-10); Myelocyte 1 % (0-0); Neutrophil 50 % (42-75); Nucleated RBC (Manual Ct) 1 % (0); Platelet Adequacy Comment Platelets Normal; Polychromasia SLIGHT = 2-3 cells HPF (0-2); Reactive Lymphocytes 5 % (0-10); Smudge Cells 5.7 %
[2024-03-26 05:08] VITALS: BMI 33.7
[2024-03-26] MEDS: Potassium Chloride 40 MEQ in Premix 1 BAG IVPB SCH (05:12)
[2024-03-26] MEDS: Dextrose 5% in Water 1,000 ML IV SCH (05:13)
[2024-03-26 07:36] LABS: Actual Bicarbonate (HCO3a) 29.5 mEq/L (22-28); Base Excess (BEa) 6.5 mEq/L (-2.0 to +3.0); CO2 Tension 36.2 mmHg (35.0-45.0); Calcium, Ionized (arterial) 1.09 mmol/L (1.12-1.30); Hematocrit-ABG 31 % (42.0-52.0); Hemoglobin (Hb) 10.4 g/dL (14.0-18.0); pH, Arterial 7.529 (7.35-7.45)
[2024-03-26 07:37] LABS: O2 Tension (PaO2), arterial 51.2 mmHg (80.0-100.0); Puncture Site RRA
[2024-03-26 10:32] LABS: ALT (SGPT) 11 U/L (8-55); AST (SGOT) 26 U/L (5-34); Albumin 2.2 g/dL (3.5-5.0); Alkaline Phosphatase 70 U/L (40-110); Anion Gap 16 mmol/L (10-20); BUN (Urea Nitrogen) 64 mg/dL (8.4-25.7); Bilirubin, Total 2.6 mg/dL (0.2-1.2); Calc. Creatinine Clearance 88 mL/min (70-130); Calcium 8.4 mg/dL (7.8-10.44); Carbon Dioxide 30 mmol/L (22-29); Chloride 111 mmol/L (98-107); Estimated GFR 71; Globulin 3.8 g/dL (2.4-3.5); Glucose 219 mg/dL (70-105); Potassium 3.6 mmol/L (3.5-5.1); Sodium 153 mmol/L (136-145)
[2024-03-26] MEDS: Dextrose 5% w/ 20 mEq KCl 1,000 ML IV SCH (10:53)
[2024-03-27 04:43] LABS: Hematocrit 25.8 % (42.0-52.0); Hemoglobin 8.2 g/dL (14.0-18.0); Mean Corpuscular HGB CONC 31.8 g/dL (32.0-36.0); Mean Corpuscular Hemoglobin 32.4 pg (27.0-31.0); Mean Platelet Volume 13.2 fL (7.4-10.4); Platelet Count 197 10x3/uL (130-400); RBC Distribution Width 13.5 % (11.5-14.5); Red Blood Cell (RBC) Count 2.53 mill/uL (4.70-6.10)
[2024-03-27 08:11] LABS: Anisocytosis MODERATE=16-30 cells HPF (0-5); Band 42 % (5-11); Eosinophils 1 % (0-10); Lymphocytes 6 % (21-51); Macrocytosis SLIGHT = 6-15 cells HPF (0-5); Metamyelocyte 1 % (0-0); Monocytes 4 % (0-10); Neutrophil 44 % (42-75); Platelet Adequacy Comment Platelets Normal; Polychromasia SLIGHT = 2-3 cells HPF (0-2); Reactive Lymphocytes 1 % (0-10); Smudge Cells 9.9 %
[2024-03-27 08:40] LABS: Anion Gap 14 mmol/L (10-20); BUN (Urea Nitrogen) 67 mg/dL (8.4-25.7); Calc. Creatinine Clearance 82 mL/min (70-130); Calcium 8.1 mg/dL (7.8-10.44); Carbon Dioxide 26 mmol/L (22-29); Chloride 114 mmol/L (98-107); Estimated GFR 67; Glucose 225 mg/dL (70-105); Potassium 3.3 mmol/L (3.5-5.1); Sodium 151 mmol/L (136-145)
[2024-03-27 09:57] LABS: Magnesium 1.9 mg/dL (1.6-2.6)
[2024-03-27 09:58] LABS: Cardiac Risk 5.4 (Less than 4.5)
[2024-03-27 12:26] LABS: Phosphorus 2.4 mg/dL (2.3-4.7)
[2024-03-27] MEDS ORDERED: Dexmedetomidine In 0.9 % NaCl 100 ML IVPB SCH (13:30)
[2024-03-27] MEDS: [UNRECOGNIZED DRUG - OTHER] IV SCH (14:45)
[2024-03-27] MEDS: POTASSIUM PHOSPHATE IV SCH (14:45)
[2024-03-27] MEDS: MULTIVITAMINS IV SCH (14:45)
[2024-03-27] MEDS: MAGNESIUM SULFATE IV SCH (14:45)
[2024-03-27] MEDS: Insulin NPH Human Isophane 100 UNITS/ML (10 ML VIAL) SC SCH (23:15)
[2024-03-27] MEDS: Metoclopramide HCl 10 MG (2 mL) VIAL IVP PRN (23:26)
[2024-03-28 05:02] LABS: ALT (SGPT) 13 U/L (8-55); AST (SGOT) 24 U/L (5-34); Albumin 1.6 g/dL (3.5-5.0); Alkaline Phosphatase 61 U/L (40-110); Anion Gap 19 mmol/L (10-20); BUN (Urea Nitrogen) 77 mg/dL (8.4-25.7); Bilirubin, Total 2.2 mg/dL (0.2-1.2); Calc. Creatinine Clearance 68 mL/min (70-130); Calcium 7.6 mg/dL (7.8-10.44); Carbon Dioxide 23 mmol/L (22-29); Chloride 113 mmol/L (98-107); Estimated GFR 54; Globulin 3.7 g/dL (2.4-3.5); Glucose 336 mg/dL (70-105); Potassium 3.2 mmol/L (3.5-5.1); Protein, Total 5.3 g/dL (6.0-8.3)
[2024-03-28 05:06] LABS: Hematocrit 20.5 % (42.0-52.0); Hemoglobin 6.5 g/dL (14.0-18.0); Mean Corpuscular HGB CONC 31.7 g/dL (32.0-36.0); Mean Corpuscular Hemoglobin 33.5 pg (27.0-31.0); Mean Corpuscular Volume 105.7 fL (78.0-98.0); Mean Platelet Volume 12.9 fL (7.4-10.4); Platelet Count 217 10x3/uL (130-400); RBC Distribution Width 13.4 % (11.5-14.5); Red Blood Cell (RBC) Count 1.94 mill/uL (4.70-6.10)
[2024-03-28 05:42] LABS: Sodium 152 mmol/L (136-145)
[2024-03-28 07:04] LABS: Anisocytosis SLIGHT = 6-15 cells HPF (0-5); Band 21 % (5-11); Eosinophils 1 % (0-10); Large Platelets 2.9 % (0-5); Lymphocytes 15 % (21-51); Macrocytosis SLIGHT = 6-15 cells HPF (0-5); Monocytes 2 % (0-10); Neutrophil 58 % (42-75); Nucleated RBC (Manual Ct) 1 % (0); Platelet Adequacy Comment Platelets Normal; Polychromasia SLIGHT = 2-3 cells HPF (0-2); Smudge Cells 6.9 %
[2024-03-28 08:48] LABS: INR-International Normal Ratio 1.2; PTT 25.6 sec (22.9-36.1); Prothrombin Time 14.8 sec (12.0-14.7)
[2024-03-28] MEDS: Calcium Chloride 1 GM/10 ML Abboject SYRINGE IVP SCH (10:32)
[2024-03-28 14:40] LABS: Hematocrit 25.6 % (42.0-52.0); Hemoglobin 8.3 g/dL (14.0-18.0)
[2024-03-28] MEDS: Albumin 25% 25 GM (100 mL) BOT IVPB SCH (15:00)
[2024-03-28] MEDS ORDERED: Albumin 25% 25 GM (100 mL) BOT IVPB SCH (18:00)
[2024-03-29 05:12] LABS: Hematocrit 25.8 % (42.0-52.0); Hemoglobin 8.5 g/dL (14.0-18.0); Mean Corpuscular HGB CONC 32.9 g/dL (32.0-36.0); Mean Corpuscular Hemoglobin 32.7 pg (27.0-31.0); Mean Corpuscular Volume 99.2 fL (78.0-98.0); Mean Platelet Volume 13.2 fL (7.4-10.4); Platelet Count 248 10x3/uL (130-400); RBC Distribution Width 15.3 % (11.5-14.5)
[2024-03-29 05:33] LABS: Phosphorus 3.1 mg/dL (2.3-4.7)
[2024-03-29 05:45] LABS: Band 16 % (5-11); Eosinophils 2 % (0-10); Lymphocytes 15 % (21-51); Macrocytosis SLIGHT = 6-15 cells HPF (0-5); Monocytes 1 % (0-10); Neutrophil 65 % (42-75); Nucleated RBC (Manual Ct) 3 % (0); Platelet Adequacy Comment Platelets Normal; Polychromasia SLIGHT = 2-3 cells HPF (0-2)
[2024-03-29 06:13] LABS: ALT (SGPT) 25 U/L (8-55); AST (SGOT) 55 U/L (5-34); Albumin 2.5 g/dL (3.5-5.0); Alkaline Phosphatase 62 U/L (40-110); Anion Gap 18 mmol/L (10-20); BUN (Urea Nitrogen) 76 mg/dL (8.4-25.7); Bilirubin, Total 3.4 mg/dL (0.2-1.2); Calc. Creatinine Clearance 82 mL/min (70-130); Calcium 8.6 mg/dL (7.8-10.44); Carbon Dioxide 23 mmol/L (22-29); Chloride 114 mmol/L (98-107); Estimated GFR 65; Globulin 3.8 g/dL (2.4-3.5); Glucose 302 mg/dL (70-105); Magnesium 1.9 mg/dL (1.6-2.6); Potassium 3.2 mmol/L (3.5-5.1); Protein, Total 6.3 g/dL (6.0-8.3); Sodium 152 mmol/L (136-145)
[2024-03-29] MEDS: Insulin NPH Human Isophane 100 UNITS/ML (10 ML VIAL) SC SCH (09:07)
[2024-03-29] MEDS ORDERED: Electrolyte Replacement Protocol FS PRN (13:45)
[2024-03-29] MEDS: Potassium Chloride 20 MEQ TAB PO SCH (13:56)
[2024-03-29 18:33] LABS: Potassium 3.1 mmol/L (3.5-5.1)
[2024-03-29] MEDS: Potassium Chloride 40 MEQ in Premix 1 BAG IVPB SCH (19:47)
[2024-03-29] MEDS: Magnesium 2 GM/50 ML(in water) 2 GM in Premix 1 BAG IVPB SCH (21:02)
[2024-03-29] MEDS ORDERED: Ventilator Sedation Protocol 1 EACH FS SCH (23:45)
[2024-03-30] MEDS: Lorazepam 2 MG/ML VIAL SLOW IVP PRN (00:09)
[2024-03-30] MEDS: Dexmedetomidine 1,000 MCG in Sodium Chloride 0.9% 250 ML 240 ML IVPB SCH (00:14)
[2024-03-30] MEDS ORDERED: Propofol 1,000 MG/100 ML VIAL IV PRN (00:15)
[2024-03-30] MEDS ORDERED: Fentanyl BOLUS 250 ML IVPB PRN (00:15)
[2024-03-30] MEDS ORDERED: Fentanyl CADD 100 ML IV SCH (00:15)
[2024-03-30] MEDS ORDERED: Propofol BOLUS 1,000 MG/100 ML VIAL IV PRN (00:15)
[2024-03-30] MEDS ORDERED: DISCONTINUE PREVIOUS NARCOTIC PAIN MEDICATIONS AND BENZODIAZEPINES FS SCH (00:15)
[2024-03-30] MEDS: Albumin 25% 100 ML ONE (04:50)
[2024-03-30 06:39] LABS: Hematocrit 21.8 % (42.0-52.0); Hemoglobin 7.1 g/dL (14.0-18.0); Mean Corpuscular HGB CONC 32.6 g/dL (32.0-36.0); Mean Corpuscular Volume 104.3 fL (78.0-98.0); Mean Platelet Volume 13.2 fL (7.4-10.4); Platelet Count 228 10x3/uL (130-400); RBC Distribution Width 14.9 % (11.5-14.5); Red Blood Cell (RBC) Count 2.09 mill/uL (4.70-6.10)
[2024-03-30 07:08] LABS: Phosphorus 3.3 mg/dL (2.3-4.7)
[2024-03-30 07:12] LABS: ALT (SGPT) 26 U/L (8-55); AST (SGOT) 55 U/L (5-34); Alkaline Phosphatase 52 U/L (40-110); Anion Gap 16 mmol/L (10-20); BUN (Urea Nitrogen) 83 mg/dL (8.4-25.7); Bilirubin, Total 3.4 mg/dL (0.2-1.2); Calc. Creatinine Clearance 77 mL/min (70-130); Calcium 7.8 mg/dL (7.8-10.44); Carbon Dioxide 21 mmol/L (22-29); Chloride 117 mmol/L (98-107); Estimated GFR 60; Globulin 3.7 g/dL (2.4-3.5); Glucose 243 mg/dL (70-105); Magnesium 2.2 mg/dL (1.6-2.6); Potassium 3.7 mmol/L (3.5-5.1); Protein, Total 5.7 g/dL (6.0-8.3); Sodium 150 mmol/L (136-145)
[2024-03-30 07:41] LABS: Anisocytosis SLIGHT = 6-15 cells HPF (0-5); Band 31 % (5-11); Hypochromia SLIGHT = 6-15 cells HPF (0-5); Lymphocytes 26 % (21-51); Macrocytosis SLIGHT = 6-15 cells HPF (0-5); Monocytes 8 % (0-10); Neutrophil 36 % (42-75); Nucleated RBC (Manual Ct) 2 % (0); Platelet Adequacy Comment Platelets Normal; Polychromasia SLIGHT = 2-3 cells HPF (0-2)
[2024-03-30] MEDS ORDERED: Iopamidol 370 76% 100 ML VIAL ONE (10:14)
[2024-03-30 19:06] LABS: Hematocrit 25.3 % (42.0-52.0); Hemoglobin 8.3 g/dL (14.0-18.0)
[2024-03-30] MEDS: Insulin NPH Human Isophane 100 UNITS/ML (10 ML VIAL) SC SCH (20:52)
[2024-03-31 08:50] LABS: ALT (SGPT) 24 U/L (8-55); AST (SGOT) 32 U/L (5-34); Alkaline Phosphatase 52 U/L (40-110); Anion Gap 16 mmol/L (10-20); BUN (Urea Nitrogen) 102 mg/dL (8.4-25.7); Calc. Creatinine Clearance 85 mL/min (70-130); Calcium 7.7 mg/dL (7.8-10.44); Carbon Dioxide 18 mmol/L (22-29); Chloride 113 mmol/L (98-107); Estimated GFR 65; Glucose 379 mg/dL (70-105); Magnesium 2.3 mg/dL (1.6-2.6); Phosphorus 4.7 mg/dL (2.3-4.7); Sodium 143 mmol/L (136-145)
[2024-03-31 09:05] LABS: Band 28 % (5-11); Eosinophils 2 % (0-10); Large Platelets 9.2 % (0-5); Lymphocytes 20 % (21-51); Macrocytosis SLIGHT = 6-15 cells HPF (0-5); Monocytes 6 % (0-10); Neutrophil 40 % (42-75); Nucleated RBC (Manual Ct) 2 % (0); Platelet Adequacy Comment Platelets Normal; Poikilocytosis MODERATE=16-30 cells HPF (0-5); Polychromasia SLIGHT = 2-3 cells HPF (0-2); Reactive Lymphocytes 2 % (0-10); Schistocytes SLIGHT = 2-5 cells HPF (0-1)
[2024-03-31 09:54] LABS: Hematocrit 23.5 % (42.0-52.0); Hemoglobin 7.5 g/dL (14.0-18.0); Mean Corpuscular HGB CONC 31.9 g/dL (32.0-36.0); Mean Corpuscular Hemoglobin 33.3 pg (27.0-31.0); Mean Corpuscular Volume 104.4 fL (78.0-98.0); Mean Platelet Volume 13.6 fL (7.4-10.4); Platelet Count 268 10x3/uL (130-400); RBC Distribution Width 14.9 % (11.5-14.5); Red Blood Cell (RBC) Count 2.25 mill/uL (4.70-6.10)
[2024-03-31] MEDS: [UNRECOGNIZED DRUG - OTHER] IV SCH (13:25)
[2024-03-31] MEDS: MULTIVITAMINS IV SCH (13:25)
[2024-03-31] MEDS: POTASSIUM ACETATE IV SCH (13:25)
[2024-03-31] MEDS: MAGNESIUM SULFATE IV SCH (13:25)
[2024-03-31] MEDS ORDERED: Rocuronium Bromide 10 MG/ML (10ML VIAL) ONE ×2 (14:42)
[2024-03-31] MEDS ORDERED: PROPOFOL 20 ML ONE (14:42)
[2024-03-31] MEDS ORDERED: fentaNYL PF 100 MCG/2 ML SYRINGE ONE ×2 (14:42→15:39)
[2024-03-31] MEDS ORDERED: ePHEDrine Sulfate 50 MG/10 ML VIAL ONE (14:44)
[2024-03-31] MEDS ORDERED: PHENYLEPHRINE-NS 100 MCG/ML 10 ML SYRINGE ONE (14:44)
[2024-03-31] MEDS ORDERED: Bupivacaine 0.25% HCL 30 ML VIAL ONE (15:27)
[2024-03-31] MEDS ORDERED: EPINEPHrine 1 MG/ML VIAL ONE (15:27)
[2024-03-31] MEDS ORDERED: Dexamethasone 20 MG/5 ML VIAL ONE (15:30)
[2024-03-31] MEDS: Insulin NPH Human Isophane 100 UNITS/ML (10 ML VIAL) SC SCH (20:18)
[2024-04-01 04:57] LABS: Hematocrit 27.3 % (42.0-52.0); Hemoglobin 8.8 g/dL (14.0-18.0); Mean Corpuscular HGB CONC 32.2 g/dL (32.0-36.0); Mean Corpuscular Hemoglobin 30.9 pg (27.0-31.0); Mean Corpuscular Volume 95.8 fL (78.0-98.0); Mean Platelet Volume 13.1 fL (7.4-10.4); Platelet Count 318 10x3/uL (130-400); RBC Distribution Width 19.9 % (11.5-14.5); Red Blood Cell (RBC) Count 2.85 mill/uL (4.70-6.10)
[2024-04-01 05:52] LABS: Anisocytosis MODERATE=16-30 cells HPF (0-5); Band 24 % (5-11); Eosinophils 4 % (0-10); Lymphocytes 9 % (21-51); Macrocytosis SLIGHT = 6-15 cells HPF (0-5); Monocytes 3 % (0-10); Neutrophil 57 % (42-75); Platelet Adequacy Comment Platelets Normal; Polychromasia MODERATE = 3-4 cells HPF (0-2); Reactive Lymphocytes 1 % (0-10); Smudge Cells 7.8 %
[2024-04-01 08:12] LABS: ALT (SGPT) 26 U/L (8-55); AST (SGOT) 58 U/L (5-34); Albumin 1.9 g/dL (3.5-5.0); Alkaline Phosphatase 76 U/L (40-110); Anion Gap 13 mmol/L (10-20); BUN (Urea Nitrogen) 88 mg/dL (8.4-25.7); Bilirubin, Total 1.9 mg/dL (0.2-1.2); Calc. Creatinine Clearance 114 mL/min (70-130); Calcium 7.9 mg/dL (7.8-10.44); Carbon Dioxide 21 mmol/L (22-29); Chloride 117 mmol/L (98-107); Estimated GFR 89; Globulin 4.4 g/dL (2.4-3.5); Glucose 147 mg/dL (70-105); Protein, Total 6.3 g/dL (6.0-8.3); Sodium 147 mmol/L (136-145)
[2024-04-01 08:13] LABS: Magnesium 2.2 mg/dL (1.6-2.6)
[2024-04-01 08:38] LABS: Phosphorus 2.8 mg/dL (2.3-4.7)
[2024-04-01] MEDS: Morphine 2 MG/ML VIAL SLOW IVP PRN (08:43)
[2024-04-01] MEDS: Furosemide 100 MG (10 mL) VIAL SLOW IVP SCH (11:35)
[2024-04-01] MEDS: Sodium Chloride 0.9% 100 ML ONE (18:10)
[2024-04-02 04:20] LABS: ALT (SGPT) 34 U/L (8-55); AST (SGOT) 52 U/L (5-34); Alkaline Phosphatase 106 U/L (40-110); Anion Gap 13 mmol/L (10-20); BUN (Urea Nitrogen) 83 mg/dL (8.4-25.7); Bilirubin, Total 2.2 mg/dL (0.2-1.2); Calc. Creatinine Clearance 129 mL/min (70-130); Carbon Dioxide 21 mmol/L (22-29); Chloride 115 mmol/L (98-107); Estimated GFR 102; Globulin 4.9 g/dL (2.4-3.5); Glucose 340 mg/dL (70-105); Magnesium 2.1 mg/dL (1.6-2.6); Potassium 4.3 mmol/L (3.5-5.1); Protein, Total 6.9 g/dL (6.0-8.3); Sodium 145 mmol/L (136-145)
[2024-04-02 04:28] LABS: Phosphorus 3.3 mg/dL (2.3-4.7)
[2024-04-02 08:06] LABS: Hematocrit 27.4 % (42.0-52.0); Hemoglobin 8.5 g/dL (14.0-18.0); Mean Corpuscular Hemoglobin 31.6 pg (27.0-31.0); Mean Corpuscular Volume 101.9 fL (78.0-98.0); Mean Platelet Volume 12.9 fL (7.4-10.4); Platelet Count 386 10x3/uL (130-400); RBC Distribution Width 19.7 % (11.5-14.5); Red Blood Cell (RBC) Count 2.69 mill/uL (4.70-6.10)
[2024-04-02 08:07] LABS: Actual Bicarbonate (HCO3a) 20.3 mEq/L (22-28); Base Excess (BEa) -6.2 mEq/L (-2.0 to +3.0); CO2 Tension 44.3 mmHg (35.0-45.0); Calcium, Ionized (arterial) 1.16 mmol/L (1.12-1.30); Carboxyhemoglobin (COHb) 0.9 gm% (0.0-3.0); Hematocrit-ABG 28 % (42.0-52.0); Hemoglobin (Hb) 9.6 g/dL (14.0-18.0); O2 Tension (PaO2), arterial 74.8 mmHg (80.0-100.0); Potassium - ABG Lab 4.61 mmol/L (3.70-5.30); pH, Arterial 7.278 (7.35-7.45)
[2024-04-02 08:09] LABS: Puncture Site RRA
[2024-04-02 08:10] LABS: ALV-art Gradient 83.725 mmHg (0-20)
[2024-04-02 08:43] LABS: Band 26 % (5-11); Lymphocytes 7 % (21-51); Monocytes 6 % (0-10); Neutrophil 60 % (42-75); Platelet Adequacy Comment Platelets Normal; Polychromasia SLIGHT = 2-3 cells HPF (0-2); Reactive Lymphocytes 1 % (0-10)
[2024-04-02] MEDS: Insulin NPH Human Isophane 100 UNITS/ML (10 ML VIAL) SC SCH ×2 (09:45→21:07)
[2024-04-02 16:05] VITALS: BMI 36.1
[2024-04-02] MEDS: Furosemide 40 MG (4 mL) VIAL IVP SCH (17:03)
[2024-04-02 23:48] LABS: Actual Bicarbonate (HCO3v) 20.5 mEq/L (22-28); Base Excess -6.9 mEq/L (-2.0 to +3.0); Calcium, Ionized (venous) 1.14 mmol/L (1.16-1.32); Chloride (VBG) 112 mmol/L (98-106); Hematocrit-VBG 29 % (42.0-52.0); Hemoglobin (Hb) 9.9 g/dL (13.1-17.2); Sodium 145 mmol/L (133-146); pH (venous) 7.229 (7.32-7.43)
[2024-04-03 00:03] LABS: Lactic Acid 1.8 mmol/L (0.5-2.2)
[2024-04-03 00:09] LABS: Hematocrit 28.7 % (42.0-52.0); Hemoglobin 8.8 g/dL (14.0-18.0); Mean Corpuscular HGB CONC 30.7 g/dL (32.0-36.0); Mean Corpuscular Hemoglobin 31.8 pg (27.0-31.0); Mean Corpuscular Volume 103.6 fL (78.0-98.0); Mean Platelet Volume 12.8 fL (7.4-10.4); Platelet Count 462 10x3/uL (130-400); Red Blood Cell (RBC) Count 2.77 mill/uL (4.70-6.10)
[2024-04-03 00:11] LABS: ALT (SGPT) 39 U/L (8-55); AST (SGOT) 37 U/L (5-34); Albumin 1.9 g/dL (3.5-5.0); Alkaline Phosphatase 113 U/L (40-110); Anion Gap 13 mmol/L (10-20); BUN (Urea Nitrogen) 100 mg/dL (8.4-25.7); Bilirubin, Total 1.6 mg/dL (0.2-1.2); Calc. Creatinine Clearance 81 mL/min (70-130); Calcium 8.1 mg/dL (7.8-10.44); Carbon Dioxide 19 mmol/L (22-29); Chloride 114 mmol/L (98-107); Estimated GFR 60; Globulin 5.3 g/dL (2.4-3.5); Glucose 435 mg/dL (70-105); Potassium 4.9 mmol/L (3.5-5.1); Protein, Total 7.2 g/dL (6.0-8.3); Sodium 141 mmol/L (136-145)
[2024-04-03 00:36] LABS: Anisocytosis MODERATE=16-30 cells HPF (0-5); Band 17 % (5-11); Eosinophils 3 % (0-10); Hypochromia SLIGHT = 6-15 cells HPF (0-5); Large Platelets 5.8 % (0-5); Lymphocytes 8 % (21-51); Macrocytosis SLIGHT = 6-15 cells HPF (0-5); Monocytes 12 % (0-10); Neutrophil 60 % (42-75); Ovalocytes SLIGHT = 2-5 cells HPF (0-1); Platelet Adequacy Comment Platelets Increased; Polychromasia MODERATE = 3-4 cells HPF (0-2); Smudge Cells 5.8 %
[2024-04-03 06:15] LABS: Hematocrit 28.4 % (42.0-52.0); Hemoglobin 8.6 g/dL (14.0-18.0); Mean Corpuscular HGB CONC 30.3 g/dL (32.0-36.0); Mean Corpuscular Hemoglobin 31.9 pg (27.0-31.0); Mean Corpuscular Volume 105.2 fL (78.0-98.0); Platelet Count 493 10x3/uL (130-400)
[2024-04-03 06:31] LABS: ALT (SGPT) 46 U/L (8-55); AST (SGOT) 63 U/L (5-34); Albumin 1.8 g/dL (3.5-5.0); Alkaline Phosphatase 116 U/L (40-110); Anion Gap 12 mmol/L (10-20); BUN (Urea Nitrogen) 105 mg/dL (8.4-25.7); Bilirubin, Total 1.6 mg/dL (0.2-1.2); Calc. Creatinine Clearance 73 mL/min (70-130); Calcium 8.1 mg/dL (7.8-10.44); Carbon Dioxide 19 mmol/L (22-29); Chloride 113 mmol/L (98-107); Estimated GFR 53; Globulin 5.2 g/dL (2.4-3.5); Glucose 398 mg/dL (70-105); Magnesium 2.2 mg/dL (1.6-2.6); Potassium 5.2 mmol/L (3.5-5.1); Sodium 139 mmol/L (136-145)
[2024-04-03 06:46] LABS: Anisocytosis MODERATE=16-30 cells HPF (0-5); Band 30 % (5-11); Lymphocytes 9 % (21-51); Macrocytosis SLIGHT = 6-15 cells HPF (0-5); Monocytes 1 % (0-10); Neutrophil 59 % (42-75); Platelet Adequacy Comment Platelets Increased; Polychromasia MODERATE = 3-4 cells HPF (0-2)
[2024-04-03] MEDS: Enoxaparin 40 MG (0.4 mL) SYRINGE SC SCH (09:03)
[2024-04-03] MEDS: Furosemide 40 MG TAB PO SCH (09:03)
[2024-04-03] MEDS: Vecuronium 10 MG VIAL IV SCH (11:27)
[2024-04-03] MEDS: SODIUM ACETATE IV SCH (14:04)
[2024-04-03] MEDS: [UNRECOGNIZED DRUG - OTHER] IV SCH (14:04)
[2024-04-03] MEDS: MAGNESIUM SULFATE IV SCH (14:04)
[2024-04-03] MEDS: MULTIVITAMINS IV SCH (14:04)
[2024-04-04 05:43] LABS: Hematocrit 26.9 % (42.0-52.0); Hemoglobin 8.2 g/dL (14.0-18.0); Mean Corpuscular HGB CONC 30.5 g/dL (32.0-36.0); Mean Corpuscular Hemoglobin 30.4 pg (27.0-31.0); Mean Corpuscular Volume 99.6 fL (78.0-98.0); Mean Platelet Volume 12.6 fL (7.4-10.4); Platelet Count 452 10x3/uL (130-400); RBC Distribution Width 18.6 % (11.5-14.5)
[2024-04-04 05:57] LABS: ALT (SGPT) 72 U/L (8-55); AST (SGOT) 116 U/L (5-34); Albumin 1.7 g/dL (3.5-5.0); Alkaline Phosphatase 137 U/L (40-110); Anion Gap 12 mmol/L (10-20); BUN (Urea Nitrogen) 100 mg/dL (8.4-25.7); Bilirubin, Total 1.4 mg/dL (0.2-1.2); Calc. Creatinine Clearance 113 mL/min (70-130); Calcium 8.4 mg/dL (7.8-10.44); Carbon Dioxide 23 mmol/L (22-29); Chloride 113 mmol/L (98-107); Estimated GFR 88; Globulin 5.3 g/dL (2.4-3.5); Glucose 157 mg/dL (70-105); Potassium 4.2 mmol/L (3.5-5.1); Sodium 144 mmol/L (136-145)
[2024-04-04 06:20] LABS: Band 41 % (5-11); Eosinophils 1 % (0-10); Hypochromia SLIGHT = 6-15 cells HPF (0-5); Lymphocytes 5 % (21-51); Metamyelocyte 1 % (0-0); Monocytes 7 % (0-10); Neutrophil 42 % (42-75); Nucleated RBC (Manual Ct) 1 % (0); Platelet Adequacy Comment Platelets Increased; Polychromasia MODERATE = 3-4 cells HPF (0-2); Promyelocytes 1 % (0-0); Reactive Lymphocytes 1 % (0-10)
[2024-04-04] MEDS: Furosemide 20 MG (2 mL) VIAL SLOW IVP SCH (12:46)
[2024-04-04 13:18] VITALS: TEMP 98.4
[2024-04-04] MEDS: Metoclopramide HCl 10 MG (2 mL) VIAL IVP SCH (14:37)
[2024-04-04] MEDS: Bisacodyl 10 MG SUPP PR PRN (15:53)
[2024-04-04 18:22] VITALS: BP 184/89
[2024-04-04] MEDS ORDERED: Bisacodyl 10 MG SUPP PR SCH (21:00)
[2024-04-05] MEDS ORDERED: Furosemide 20 MG (2 mL) VIAL SLOW IVP SCH (09:00)
== END 2024-04-04 19:10 | disposition short-term general hospital (02) | DRG 4 ==
LOC: ERS 10:00 → IMCU/EMU 15:25 → CCU 03-17 02:02
PROVIDERS: ADMIT Internal Medicine; ATTEND Hospitalist
PROC: 05HM33Z Insertion of Infusion Device into Right Internal Jugular Vein, Percutaneous Approach (ICD-10-PCS; principal; 2024-03-17)
PROC: 5A12012 Performance of Cardiac Output, Single, Manual (ICD-10-PCS; 2024-03-17)
PROC: 5A1955Z Respiratory Ventilation, Greater than 96 Consecutive Hours (ICD-10-PCS; 2024-03-17)
PROC: 3E043XZ Introduction of Vasopressor into Central Vein, Percutaneous Approach (ICD-10-PCS; 2024-03-17)
PROC: 0BH17EZ Insertion of Endotracheal Airway into Trachea, Via Natural or Artificial Opening (ICD-10-PCS; 2024-03-17)
PROC: 4A00X4Z Measurement of Central Nervous Electrical Activity, External Approach (ICD-10-PCS; 2024-03-24)
PROC: 0B110F4 Bypass Trachea to Cutaneous with Tracheostomy Device, Open Approach (ICD-10-PCS; 2024-03-31)
DX: A41.9 Sepsis, unspecified organism (principal); G93.41 Metabolic encephalopathy; J96.01 Acute respiratory failure with hypoxia; R65.21 Severe sepsis with septic shock; K85.21 Alcohol induced acute pancreatitis with uninfected necrosis; I21.A1 Myocardial infarction type 2; N17.9 Acute kidney failure, unspecified; E87.20 Acidosis, unspecified; I82.890 Acute embolism and thrombosis of other specified veins; E87.1 Hypo-osmolality and hyponatremia; F10.139 Alcohol abuse with withdrawal, unspecified; I50.20 Unspecified systolic (congestive) heart failure; I42.0 Dilated cardiomyopathy; I13.0 Hypertensive heart and chronic kidney disease with heart failure and stage 1 through stage 4 chronic kidney disease, or unspecified chronic kidney disease; K56.7 Ileus, unspecified; E87.0 Hyperosmolality and hypernatremia; R18.8 Other ascites; T79.A3XA Traumatic compartment syndrome of abdomen, initial encounter; Z66 Do not resuscitate; Z51.5 Encounter for palliative care; D50.0 Iron deficiency anemia secondary to blood loss (chronic); X58.XXXA Exposure to other specified factors, initial encounter; K70.10 Alcoholic hepatitis without ascites; E83.51 Hypocalcemia; E88.09 Other disorders of plasma-protein metabolism, not elsewhere classified; E83.42 Hypomagnesemia; D63.1 Anemia in chronic kidney disease; D69.6 Thrombocytopenia, unspecified; E78.1 Pure hyperglyceridemia; E87.6 Hypokalemia; E11.22 Type 2 diabetes mellitus with diabetic chronic kidney disease; Z79.899 Other long term (current) drug therapy
CPT/HCPCS: 36415; 36416; 36430; 36600; 70450; 71045; 74018; 74160; 74177; 76705; 80048; 80053; 80061; 81001; 82140; 82248; 82330; 82533; 82805; 83036; 83605; 83690; 83735; 83880; 84100; 84134; 84311; 84478; 84484; 85025; 85610; 85730; 86850; 86900; 86901; 87040; 93005; 93010; 93306; 94002; 94003; 94760; 95700; 95711; 95819; 96361; 96365; 96375; 96376; 97139; C9113; J0171; J0613; J0665; J1100; J1644; J1650; J1720; J1815; J1940; J2060; J2185; J2250; J2270; J2272; J2405; J2543; J2704; J2765; J3010; J3411; J3475; J3480; J3490; J7030; J7042; J7050; J7070; J7120; J7999; P9016; P9047; Q9967; S0028